=== PATIENT | male | born 1965 | race Caucasian/White ===

== ENCOUNTER → 2019-11-06 | Outpatient (CLI) | payer OTHER ==
[~2019-11-06] MED LIST: ADVAIR HFA 230M12 GM; ALBUTEROL SUL5 MG/M1; ASPIRIN81 M2 PO; CALCIUM CARBON500 M3 PO; CENTRUM PERFOR1 EACH PO; FISH OIL 1,0001 EAC7 PO; FLAXSEED OIL1000 MG PO; GEMFIBROZIL 60600 MG PO; L-LYSINE500 M1 PO; LIPITOR 10 MG10 M1 PO; VITAMIN D1000 UNI1 PO
== END ==
LOC: SJCVCIMAG 12:13
PROVIDERS: ATTEND Internal Medicine Cardiovascular Disease
DX: M79.605 Pain in left leg (principal); M79.89 Other specified soft tissue disorders

== ENCOUNTER → 2020-10-05 | Outpatient (CLI) | payer OTHER | LOC: SJCVCIMAG 06-24 13:18 | PROVIDERS: ATTEND Internal Medicine Cardiovascular Disease | DX: I25.10 Atherosclerotic heart disease of native coronary artery without angina pectoris (principal); I10 Essential (primary) hypertension; E78.5 Hyperlipidemia, unspecified; R06.00 Dyspnea, unspecified; R53.83 Other fatigue ==